=== PATIENT | male | born 1945 | race Caucasian/White ===

== ENCOUNTER 2017-01-16 13:06 | Day surgery (SDC) | payer MEDICARE, BC ==
[~2017-01-16] VITALS: Ht 180.3 cm; Wt 93.0 kg
[2017-01-16] MEDS ORDERED: FENTANYL PF 250 MCG/5ML ONE (13:23)
[2017-01-16] MEDS ORDERED: MIDAZOLAM 1 MG/ML, 2ML ONE (13:23)
[2017-01-16] MEDS ORDERED: LACTATED RINGERS 1,000 ML IV SCH (14:00)
[2017-01-16 14:10] VITALS: BP 98/62
[2017-01-16] MEDS ORDERED: OXYBUTYNIN PO (14:17)
[2017-01-16] MEDS ORDERED: HYDROCHLOROTHIAZIDE PO (14:17)
[2017-01-16] MEDS ORDERED: ASPIRIN PO (14:17)
[2017-01-16] MEDS ORDERED: OXYCODONE PO (14:17)
[2017-01-16] MEDS ORDERED: ATEN50TA41 PO (14:17)
[2017-01-16 14:25] LABS: PATH.CAST-FLAG NOT PRESENT; SPERM-FLAG NOT PRESENT; SRC-FLAG NOT PRESENT; XTAL-FLAG NOT PRESENT; YLC-FLAG NOT PRESENT
[2017-01-16] MEDS ORDERED: DEXAMETHASONE 4 MG/ML, 1ML ONE (15:15)
[2017-01-16] MEDS ORDERED: CEFAZOLIN 1,000 MG ONE (15:15)
[2017-01-16] MEDS ORDERED: PROPOFOL 10 MG/ML, 20ML ONE (15:15)
[2017-01-16] MEDS ORDERED: ONDANSETRON 2MG/ML, 2ML ONE (15:15)
[2017-01-16] MEDS ORDERED: GENTAMICIN 80 MG/2 ML ONE (15:15)
[2017-01-16] MEDS ORDERED: OMNIPAQUE 350 MG/ML, 50 ML BOTTLE IV ONE (15:57)
[2017-01-16] MEDS ORDERED: OMNIPAQUE 350 MG/ML, 50 ML BOTTLE ONE (15:58)
[2017-01-16] MEDS ORDERED: ONDANSETRON 2MG/ML, 2ML IVPush PRN (16:00)
[2017-01-16] MEDS ORDERED: EPHEDRINE 50 MG/ML, 1ML IVPush PRN (16:00)
[2017-01-16] MEDS ORDERED: MIDAZOLAM 1 MG/ML, 2ML IV PRN (16:00)
[2017-01-16] MEDS ORDERED: hydrALAzine 20 MG/ML, 1ML IV PRN (16:00)
[2017-01-16] MEDS ORDERED: METOPROLOL 1 MG/ML, 5ML IV PRN (16:00)
[2017-01-16] MEDS ORDERED: ACETAMINOPHEN 325 MG TABLET PO PRN (16:00)
[2017-01-16] MEDS ORDERED: PROMETHAZINE 25 MG/ML, 1ML IV PRN (16:00)
[2017-01-16] MEDS ORDERED: PLEASE ENTER ALLERGIES MC SCH ×2 (16:00)
[2017-01-16] MEDS ORDERED: HYDROmorphone 1 MG/ML, 1ML IV PRN (16:00)
[2017-01-16] MEDS ORDERED: ALBUTEROL SULFATE 2.5 MG/3 ML NPPB PRN (16:00)
[2017-01-16] MEDS ORDERED: FENTANYL PF 100 MCG/2ML IV PRN (16:00)
[2017-01-16] MEDS ORDERED: LABETALOL 5MG/ML, 20ML IV PRN (16:00)
[2017-01-16] MEDS ORDERED: MEPERIDINE/PF 25MG/0.5ML IVPush PRN (16:00)
[2017-01-16] MEDS ORDERED: ACETAMINOPHEN 650 MG/20.3 ML UDC ONE (16:06)
[2017-01-16] MEDS ORDERED: OXYcodone 5 MG/5 ML ORAL.SOL UDC ONE ×2 (16:07→16:19)
[2017-01-16] MEDS: OXYcodone 5 MG/5 ML ORAL.SOL UDC PO PRN ×2 (16:11→16:21)
== END 2017-01-16 17:45 | disposition home or self-care (01) ==
LOC: OR 13:06
PROVIDERS: ATTEND Urology
DX: N35.011 Post-traumatic bulbous urethral stricture (principal); Z85.46 Personal history of malignant neoplasm of prostate; I10 Essential (primary) hypertension; Z80.0 Family history of malignant neoplasm of digestive organs; Z87.891 Personal history of nicotine dependence
CPT/HCPCS: 52281; 74420; 81001; 93005; J0690; J1100; J1580; J2250; J2405; J2704; J3010; J7120; Q9967; C1758; C1769

== ENCOUNTER → 2021-03-14 | Outpatient (CLI) | payer MEDICARE ==
[~2021-03-14] MED LIST: ACET-76 PO; ASPIRIN PO; ATEN50TA41 PO; CYCL10TA2 PO; HYDROCHLOROTHIAZIDE PO; MORP-29 PO; NAPR220C2 PO; OXYBUTYNIN PO; OXYCODONE PO; PROPYLENE GLYCOL
[2021-03-14 10:12] LABS: MICROSCOPIC AUTO
[2021-03-14 10:13] LABS: BASOPHILS % (AUTO) 0 % (0-1); EOSINOPHILS % (AUTO) 1 % (1-7); LYMPHOCYTES % (AUTO) 30 % (22-44); MEAN CORPUSCULAR HEMOGLOBIN 30.4 pg (27.5-34.5); MEAN CORPUSCULAR HGB CONC 33.5 g/dL (33.2-36.2); MEAN PLATELET VOLUME 7.4 fL (7.4-10.4); MONOCYTES % (AUTO) 7 % (2-9); NEUTROPHILS % (AUTO) 62 % (42-75); PLATELET COUNT 268 x10^3/uL (130-400); RED CELL DISTRIBUTION WIDTH 13.9 % (9.4-14.8)
[2021-03-14 10:21] LABS: CHLORIDE 104 mmol/L (98-107)
[2021-03-14 10:32] LABS: ALANINE AMINOTRANSFERASE 24 U/L (12-78); ALBUMIN 4.1 g/dL (3.4-5.0); ALKALINE PHOSPHATASE 66 U/L (45-117); ANION GAP 6 mmol/L (5-15); BILIRUBIN,TOTAL 0.3 mg/dL (0.2-1.0); CALCIUM 9.6 mg/dL (8.5-10.1); CREATININE 0.88 mg/dL (0.7-1.3); TOTAL PROTEIN 7.4 g/dL (6.4-8.2)
== END | disposition home or self-care (01) ==
LOC: STAR 08:06
PROVIDERS: ATTEND Urology
DX: Z01.818 Encounter for other preprocedural examination (principal); N99.112 Postprocedural membranous urethral stricture, male; Z20.822 Contact with and (suspected) exposure to COVID-19
CPT/HCPCS: 36415; 80053; 81001; 85025; 87086; 93005; U0003; U0005; 87077

== ENCOUNTER 2021-03-22 10:45 | Observation (INO) | payer MEDICARE ==
[~2021-03-22] VITALS: Ht 180.3 cm; Wt 80.0 kg
[2021-03-22] MEDS ORDERED: CHLORHEXIDINE 15 ML UDC ONE (11:21)
[2021-03-22] MEDS ORDERED: CHLORHEXIDINE 15 ML UDC PO ONE (11:30)
[2021-03-22] MEDS ORDERED: LACTATED RINGERS 1,000 ML IV SCH (11:30)
[2021-03-22] MEDS ORDERED: MIDAZOLAM 1 MG/ML, 2ML ONE (12:34)
[2021-03-22] MEDS ORDERED: FENTANYL PF 250 MCG/5ML ONE (12:34)
[2021-03-22] MEDS ORDERED: NEOSPORIN OINT. PKT 1 PACKET ONE (12:51)
[2021-03-22] MEDS ORDERED: LIDOCAINE/PF 1%-EPI 1:200K, 30 ML ONE (12:51)
[2021-03-22] MEDS ORDERED: BUPIVACAINE/PF 0.25% ONE (12:51)
[2021-03-22] MEDS ORDERED: CEFTRIAXONE 1,000 MG ONE (14:04)
[2021-03-22] MEDS ORDERED: METHYLENE BLUE 50 MG/10 ML AMP ONE (14:09)
[2021-03-22] MEDS ORDERED: GLYCOPYRROLATE 0.2MG/1ML, 5ML ONE (16:47)
[2021-03-22] MEDS ORDERED: SUCCINYLCHOLINE 20 MG/ML, 10ML ONE (16:47)
[2021-03-22] MEDS ORDERED: DEXAMETHASONE 4 MG/ML, 1ML ONE (16:47)
[2021-03-22] MEDS ORDERED: PROPOFOL 10 MG/ML, 20ML ONE (16:47)
[2021-03-22] MEDS ORDERED: ROCURONIUM 10MG/ML,5ML ONE (16:47)
[2021-03-22] MEDS ORDERED: CEFAZOLIN 1,000 MG ONE (16:47)
[2021-03-22] MEDS ORDERED: ONDANSETRON 2MG/ML, 2ML ONE (16:47)
[2021-03-22] MEDS ORDERED: NEOSTIGMINE 1 MG/ML, 10ML ONE (16:47)
[2021-03-22] MEDS ORDERED: PROMETHAZINE 25 MG/ML, 1ML IVPush PRN (17:00)
[2021-03-22] MEDS ORDERED: ALBUTEROL SULFATE 2.5 MG/3 ML NPPB PRN (17:00)
[2021-03-22] MEDS ORDERED: HYDROmorphone 1 MG/ML, 1ML INJ IVPush PRN (17:00)
[2021-03-22] MEDS ORDERED: MEPERIDINE/PF 25MG/0.5ML IVPush PRN (17:00)
[2021-03-22] MEDS ORDERED: LABETALOL 5MG/ML, 20ML IV PRN (17:00)
[2021-03-22] MEDS ORDERED: MIDAZOLAM 1 MG/ML, 2ML IV PRN (17:00)
[2021-03-22] MEDS ORDERED: ACETAMINOPHEN 325 MG TABLET PO PRN (17:00)
[2021-03-22] MEDS ORDERED: ACETAMINOPHEN 650 MG/20.3 ML UDC ONE (18:31)
[2021-03-22] MEDS ORDERED: OXYcodone 5 MG/5 ML ORAL.SOL UDC ONE ×2 (18:31→19:29)
[2021-03-22] MEDS ORDERED: FENTANYL PF 100 MCG/2ML ONE (18:31)
[2021-03-22] MEDS: FENTANYL PF 100 MCG/2ML IV PRN ×2 (18:33→19:11)
[2021-03-22] MEDS: OXYcodone 5 MG/5 ML ORAL.SOL UDC PO PRN ×2 (18:41→19:28)
[2021-03-22] MEDS ORDERED: KETOROLAC 30 MG/1 ML ONE (18:57)
[2021-03-22] MEDS: KETOROLAC 30 MG/1 ML IVPush PRN (19:03)
[2021-03-22 20:15] VITALS: BP 117/66
[2021-03-22] MEDS ORDERED: OXYBUTYNIN CHLORIDE 5 MG TABLET PO PRN (20:30)
[2021-03-22] MEDS ORDERED: DIPHENHYDRAMINE 50 MG/ML, 1ML IV PRN (20:30)
[2021-03-22] MEDS ORDERED: OPIUM/BELLADONNA SUPP.RECT 16.2-30 MG PR PRN (20:30)
[2021-03-22] MEDS ORDERED: ONDANSETRON 2MG/ML, 2ML IV PRN (20:30)
[2021-03-22] MEDS ORDERED: HYDROmorphone 1 MG/ML, 1ML INJ IV PRN (20:30)
[2021-03-23] MEDS ORDERED: ARTIFICIAL TEARS OINT 3.5 GM EACHEYE PRN
[2021-03-23 00:05] VITALS: BP 107/53
[2021-03-23] MEDS ORDERED: DIPHENHYDRAMINE 50 MG/ML, 1ML IV PRN (01:21)
[2021-03-23 04:32] VITALS: BP 102/58
[2021-03-23] MEDS: ACETAMINOPHEN 500 MG TABLET PO PRN ×2 (06:36→13:44)
[2021-03-23] MEDS: OXYcodone IR 5MG TABLET PO PRN ×2 (06:36→13:44)
[2021-03-23] MEDS: KETOROLAC 30 MG/1 ML IVPush PRN (07:55)
[2021-03-23 08:15] VITALS: BP 109/55
[2021-03-23] MEDS ORDERED: CYCLOBENZAPRINE 10 MG TABLET PO SCH (09:00)
[2021-03-23] MEDS ORDERED: POLYETHYLENE GLYCOL 17 GM PACKET PO SCH (09:00)
[2021-03-23] MEDS ORDERED: SULFAMETH./TRIMETHOPRIM DS 800MG/160MG TABLET PO SCH (09:00)
[2021-03-23] MEDS: LACTATED RINGERS 1,000 ML IV SCH ×2 (09:00)
[2021-03-23 12:48] VITALS: BP 105/57
== END 2021-03-23 14:05 | disposition home or self-care (01) ==
LOC: OUT 10:45 → 4NE 20:18 → OUT 20:36
PROVIDERS: ADMIT Urology; ATTEND Urology
DX: N99.114 Postprocedural urethral stricture, male, unspecified (principal); N39.0 Urinary tract infection, site not specified; N40.1 Benign prostatic hyperplasia with lower urinary tract symptoms; N39.3 Stress incontinence (female) (male); I10 Essential (primary) hypertension; E78.5 Hyperlipidemia, unspecified; E78.00 Pure hypercholesterolemia, unspecified; F52.21 Male erectile disorder; Z79.899 Other long term (current) drug therapy; Z87.891 Personal history of nicotine dependence; Z85.46 Personal history of malignant neoplasm of prostate
CPT/HCPCS: 14301; 15155; 52281; 53215; 88305; 96361; 96374; 96375; C1760; C1769; G0378; J0330; J0690; J0696; J1100; J1170; J1200; J1885; J2250; J2405; J2704; J2710; J3010; J7120; Q9968